=== PATIENT | female | born 1990 | race Caucasian/White ===

== ENCOUNTER 2019-11-10 20:47 | Emergency (ER) | payer OTHER ==
[~2019-11-10] VITALS: Ht 167.6 cm; Wt 74.8 kg
[2019-11-10 20:50] VITALS: BP 179/149
--- NOTE | 2019-11-10 20:52 | NUR ---
BIBA TAKEN TO BED 7
[2019-11-10] MEDS ORDERED: LORazepam 2 MG/ML VIAL IM ONE (20:55)
[2019-11-10] MEDS ORDERED: NACL 0.9% 1,000 ML IV ONE (20:55)
[2019-11-10] MEDS ORDERED: HALOPERIDOL IM 5 MG/ML VIAL IM ONE (20:55)
[2019-11-10] MEDS ORDERED: diphenhydrAMINE 50 MG/ML VIAL IM ONE (20:55)
[2019-11-10] MEDS ORDERED: diphenhydrAMINE 50 MG/ML VIAL ONE (20:57)
[2019-11-10] MEDS ORDERED: LORazepam 2 MG/ML VIAL ONE (20:57)
[2019-11-10] MEDS ORDERED: HALOPERIDOL IM 5 MG/ML VIAL ONE (20:57)
--- NOTE | 2019-11-10 21:00 | NUR ---
pt came via ambulance belligerent, and yelling at staff saying, " you are a stupid whore, you fucking idiot. " after being placed in a room, continues to yell and curse at staff and yelling at other patients. Dr. Aguilar made aware. all other forms of deescalation is not successful. advised for B52 combination.
--- NOTE | 2019-11-10 21:12 | NUR ---
PT TAKEN TO BED 10. GAVE REPORT TO MIKE BECERRA FOR CONTINUITY OF CARE.
--- NOTE | 2019-11-10 21:12 | NUR ---
29 Y/O F BIB BLS RUN C/O "EMOTIONAL DISTRESS." UPON ARRIVAL, PT AGITATED, TALKING LOUDLY, CONTINUOUSLY AND CUSSING TO STAFF AND OTHER PATIENTS. UNABLE TO COMMUNICATE WITH PT APPROPRIATELY AND UNABLE TO ANSWER QUETIONS APPROPRIATELY. PT HYPERTENSIVE DURING ASSESSMENT DUE TO PT CONTINUOUSLY MOVING AND AGITATED. BED LOCKED AND IN LOWEST POSITION, SIDE RAIL UPX2. WILL CONTINUE TO MONITOR. MHX: UNOBTAINABLE ALLERGIES: UNOBTAINABLE.
--- NOTE | 2019-11-10 21:33 | NUR ---
ERMD AT BEDSIDE EVALUATING PT
--- NOTE | 2019-11-10 22:09 | NUR ---
straight catheterization performed via sterile technique. output of 80cc. pt tolerated well.
[2019-11-10 22:35] LABS: BARBITURATE, URINE NEGATIVE ng/ml (NEG <=200); BENZODIAZEPINE, URINE POSITIVE ng/mL (NEG <=200); CANNABINOID, URINE NEGATIVE ng/mL (NEG <=50); COCAINE, URINE NEGATIVE ng/mL (NEG <=300); OPIATE, URINE NEGATIVE ng/mL (NEG <=2000); PHENCYCLIDINE SCREEN,URINE NEGATIVE ng/mL (NEG <=25)
[2019-11-10 22:42] LABS: HEMOGLOBIN 11.9 g/dL (12.0-16.0); LYMPHOCYTES # (AUTO) 3.5 K/uL (2.5-16.5); NEUTROPHILS # (AUTO) 2.4 K/uL (1.8-7.7); WHITE BLOOD COUNT (AUTO) 6.9 K/uL (4.8-10.8)
[2019-11-10 22:45] LABS: BASOPHILS # (AUTO) 0.1 K/uL (0.00-0.22); BASOPHILS % (AUTO) 0.9 % (0.0-2.0); EOSINOPHILS # (AUTO) 0.1 K/uL (0-0.4); HEMATOCRIT 35.5 % (36-48); MEAN CORPUSCULAR HEMOGLOBIN 29 pg (27-31); MEAN CORPUSCULAR HGB CONC 33 g/dL (33-37); MEAN CORPUSCULAR VOLUME 87.8 fL (80-94); MONOCYTES # (AUTO) 0.7 K/uL (0.8-1.0); MONOCYTES % (AUTO) 10.8 % (1.7-9.3); PLATELET COUNT (AUTO) 386 K/uL (140-450); RED BLOOD CELL COUNT(AUTO) 4.04 MIL/uL (4.20-5.40); RED CELL DISTRIBUTION WIDTH 14.5 % (11.6-13.7)
[2019-11-10 22:49] LABS: ALBUMIN 3.4 g/dL (3.4-5.0); ANION GAP 12.4 (8-16); ASPARTATE AMINOTRANSFERASE 23 U/L (15-37); CHLORIDE 107 mmol/L (98-107); CREATININE 0.9 mg/dL (0.6-1.3); GFR ARICAN-AMERICAN 95 mL/min (>90); GLUCOSE 99 mg/dL (74-106); POTASSIUM 3.4 mmol/L (3.5-5.1); SODIUM SERUM 140 mmol/L (136-145); TOTAL BILIRUBIN 0.4 mg/dL (0.0-1.0); UREA NITROGEN, BLOOD 11 mg/dL (7-18)
[2019-11-10 22:52] LABS: NEUTROPHILS % (AUTO) 35.3 % (42.2-75.2)
[2019-11-10 22:53] LABS: ACETAMINOPHEN < 0.5 ug/ml (10-30)
--- NOTE | 2019-11-11 00:05 | NUR ---
PT RESTING IN BED, EYES CLOSED. RESPIRATIONS EVEN AND UNLABORED. CHEST RISE IS SYMMETRICAL. WILL CONTINUE TO MONITOR.
--- NOTE | 2019-11-11 01:55 | NUR ---
PT RESTING IN BED, EYES CLOSED. RESPIRATIONS EVEN AND UNLABORED. CHEST RISE IS SYMMETRICAL. WILL CONTINUE TO MONITOR.
--- NOTE | 2019-11-11 03:50 | NUR ---
PT RESTING IN BED, EYES CLOSED. RESPIRATIONS EVEN AND UNLABORED. CHEST RISE IS SYMMETRICAL. WILL CONTINUE TO MONITOR.
--- NOTE | 2019-11-11 05:49 | NUR ---
PT RESTING IN BED, EYES CLOSED. RESPIRATIONS EVEN AND UNLABORED. CHEST RISE IS SYMMETRICAL. WILL CONTINUE TO MONITOR
--- NOTE | 2019-11-11 06:55 | NUR ---
ERMD AT BEDSIDE EVALUATING PT
--- NOTE | 2019-11-11 07:03 | NUR ---
PT RESTING IN BED, EYES CLOSED. RESPIRATIONS EVEN AND UNLABORED. CHEST RISE IS SYMMETRICAL. WILL CONTINUE TO MONITOR
--- NOTE | 2019-11-11 07:09 | NUR ---
REPORT GIVEN TO SONDRA MCKEON FOR CONTINUITY OF CARE.
--- NOTE | 2019-11-11 09:46 | NUR ---
ATTEMPTED TO GET PT UP AND AMBULATORY TO TEST GAIT. PT EASILY AROUSABLE BY VOICE BUT NOT ANSWERING ANY OF MY QUESTIONS/REQUESTS TO GET UP OUT OF BED.
--- NOTE | 2019-11-11 09:57 | NUR ---
PT AMBULATORY STEADY GAIT, DR. CONLEY NOTIFIED
--- NOTE | 2019-11-11 10:44 | NUR ---
Patient discharged with v/s stable. Written and verbal after care instructions given and explained. Patient verbalized understanding. Ambulatory with steady gait. All questions addressed prior to discharge. Advised to follow up with PMD. MENTAL HEALTH/COUNSELING/PSYCHIATRIC RESOURCES AND HOMELESS RESOURCES GIVEN TO PT. ALSO HOMELESS MEAL PACKET GIVEN TO PT.
[2019-11-11 10:46] VITALS: BP 120/67
== END 2019-11-11 10:44 | disposition home or self-care (01) ==
LOC: MED 20:47
DX: R41.82 Altered mental status, unspecified (principal); F15.129 Other stimulant abuse with intoxication, unspecified
CPT/HCPCS: 36415; 80053; 80305; 85025; 93005; 96360; 96372; 99285; G0480; G0482; J1200; J1630; J2060; J7030; 96361; 99284

== ENCOUNTER 2019-11-11 20:49 | Emergency (ER) | payer OTHER ==
[~2019-11-11] VITALS: Ht 165.1 cm; Wt 81.6 kg
[2019-11-11 21:36] VITALS: BP 117/64
[2019-11-11 21:37] VITALS: BP 132/88
== END 2019-11-11 22:39 | disposition home or self-care (01) ==
LOC: MED 20:49
DX: L84 Corns and callosities (principal); F15.10 Other stimulant abuse, uncomplicated
CPT/HCPCS: 99281; 99283